=== PATIENT | male | born 1945 ===

== ENCOUNTER 2020-12-03 05:20 | Day surgery (SDC) | payer OTHER ==
[~2020-12-03 05:20] MED LIST: AVAPRO300 MG PO; FLUTICASONE-SA1 EAC5; HUMULIN R500 UNIT/2; LASIX20 MG PO; LIDOCAINE 2%-MU30 GM; LYRICA100 MG PO; PLAVIX75 MG PO; ZYLOPRIM300 MG PO; [UNRECOGNIZED DRUG - OTHER]
[2020-12-03] MEDS ORDERED: NEURONTIN300 MG PO (09:33)
[2020-12-03] MEDS ORDERED: ULTRAM50 MG PO (09:33)
[2020-12-03] MEDS ORDERED: MUPIROCIN15 GM TOP (09:35)
== END 2020-12-03 14:45 | disposition home or self-care (01) ==
LOC: CIR.AMB 05:20
PROVIDERS: ATTEND Surgery
DX: K60.3 Anal fistula (principal); B96.89 Other specified bacterial agents as the cause of diseases classified elsewhere